=== PATIENT | male | born 1995 | race Caucasian/White ===

== ENCOUNTER 2022-03-27 16:02 | Emergency (ER) | payer MEDICAID, SELFPAY ==
[2022-03-27 16:15] VITALS: BP 140/90; PULSE 94; RESP 19; TEMP 37; O2SAT 98; BMI 31.9
[2022-03-27 16:30] LABS: Adenovirus,PCR Not Detected (NotDetected); Bordetella Pertussis Not Detected (NotDetected); Chlamydophila Pneumoniae, PCR Not Detected (NotDetected); Coronavirus 19, PCR Not Detected (NotDetected); Coronavirus 229E Not Detected (NotDetected); Coronavirus NL63 Not Detected (NotDetected); Coronavirus OC43 Not Detected (NotDetected); Coronovirus HKU1,PCR Not Detected (NotDetected); Human Metapneumovirus Not Detected (NotDetected); Influenza A, PCR Not Detected (NotDetected); Influenza AH1, 2009 Not Detected (NotDetected); Influenza AH1, PCR Not Detected (NotDetected); Influenza AH3,PCR Not Detected (NotDetected); Influenza B, PCR Not Detected (NotDetected); Mycoplasma Pneumoniae, PCR Not Detected (NotDetected); Parainfluenza 1, PCR Not Detected (NotDetected); Parainfluenza 2, PCR Not Detected (NotDetected); Parainfluenza 3, PCR Not Detected (NotDetected); Parainfluenza 4, PCR Not Detected (NotDetected); Respiratory Syncytial Virus Not Detected (NotDetected); Rhinovirus/Enterovirus Not Detected (NotDetected)
--- NOTE | 2022-03-27 16:38 | HMH.EDUTC ---
[facility] – [place], [place] Disposition Clinical Impression: Upper respiratory infection, viral Disposition: Home, Self-Care Condition on Discharge: Good Instructions: DI for Viral Upper Respiratory Infection -- Adult Additional Instructions: covid swab was sent to lab, call tomorrow for results. self isolate until test results are known to be negative No sign of a bacterial infection. Likely viral. Viruses can take 7-14 days to run their course. Nasal saline and bulb syringe or nose Libby to remove nasal drainage to help with nasal congestion. Hard to eat, drink, sleep with nasal congestion so important to keep this cleaned out. Monitor temp. Tylenol or Motrin as needed for pain or fever Encourage fluids, water, Gatorade, Powerade, Pedialyte if /toddler/child Warm salt water gargles Warm fluids Sore throat lozenges Sleep elevated Humidifier/vaporizer Follow-up immediately for new or worsening symptoms or no noticeable improvement over the next 48-72 hours. Referrals: Provider,Referral, MD [Primary Care Provider] - Forms: Work/School Release Time of Disposition: 16:51 Medical Decision Making - Jaguar Inquiry Pt receiving controlled substance: No Vital Signs: 03/27/22 16:15 Temperature 98.6 F Temperature Source Oral Pulse Rate [Right Brachial] 94 H Respiratory Rate 19 Blood Pressure [Right Arm] 140/90 Blood Pressure Mean [Right Arm] 106 Blood Pressure Source [Right Arm] Automatic Cuff Blood Pressure Position [Right Arm] Sitting 02 Sat by Pulse Oximetry 98 Orders (Tests/Meds): ORDERS Category Date Time Status Full Resp Panel w/COVID ([facility]) Routine Lab 03/27/22 16:22 Received [facility] – [place], [place] HPI - General Chief complaint: Urgent Treatment [facility] Stated complaint: weakness, feeling tired Time Seen by Provider: 03/27/22 16:38 Mode of Arrival: Ambulatory Source of Information: Patient Limitations: No Limitations Description of Symptoms (Recalled from Triage Doc. by RN): PATIENT C/O NAUSEA, FATIGUE, AND WEAKNESS SINCE YESTERDAY HEENT Symptoms (Recalled from RN notes): No Resp Symptoms (Recalled from RN notes): Yes Skin Symptoms (Recalled from RN notes): No MS Symptoms (Recalled from RN notes): No Functional Status (Recalled from RN notes): WNL - History of Present Illness Provider Complaint: 26 yr old male presents for nausea,runny nose, weakness in knees, and night sweats last pm - Related Data Home Medications Medication Instructions Recorded Confirmed No Known Home Medications 07/29/20 07/29/20 Allergies Allergy/AdvReac Type Severity Reaction Status Date / Time No Known Allergies Allergy Unverified 07/29/20 16:26 - Worker's Comp Is this a Worker's Comp case?: No [facility] History - Hepatitis A Screen Attestation statement:: This patient has been screened for Hepatitis A risk factors. I have reviewed the patient's past medical history: Yes - Social History Smoking Status: Current every day smoker Tobacco Type: cigarettes # Packs/Day (cigarettes): 1 Alcohol Intake: never Occupational Status: employed Household Members: family ROS Obtained: Yes Systems reviewed as appropriate & no additional complaints - Constitutional Constitutional: Reports system reviewed and no additional complaints, except as docu, Reports fatigue, Denies fever(s), Reports weakness - Eyes Eyes: Reports system reviewed and no additional complaints, except as docu, Denies dry eyes - ENT Ears, Nose, Mouth, and Throat: Reports system reviewed and no additional complaints, except as docu, Reports nasal congestion, Reports nasal discharge - Cardiovascular Cardiovascular: Reports system reviewed and no additional complaints, except as docu, Denies chest pain - Respiratory Respiratory: Reports system reviewed and no additional complaints, except as docu, Denies cough - Gastrointestinal Gastrointestingal: Reports: system reviewed and no additional complaints, except as docu. Denies: abdominal pain - Musculoskel
[2022-03-27 16:48] VITALS: BP 140/90; PULSE 94; RESP 19; TEMP 37; O2SAT 98
== END 2022-03-27 17:05 | disposition home or self-care (01) ==
PROVIDERS: Emergency Provider Nurse Practitioner Family
DX: J06.9 Acute upper respiratory infection, unspecified (principal); R11.0 Nausea; R09.89 Other specified symptoms and signs involving the circulatory and respiratory systems; R53.83 Other fatigue; F17.210 Nicotine dependence, cigarettes, uncomplicated
CPT/HCPCS: 87581; 87632; 87798; 99212; C9803; G0463; U0003; U0005

== ENCOUNTER 2022-05-08 11:59 | Emergency (ER) | payer OTHER, SELFPAY ==
[2022-05-08 12:12] VITALS: BP 148/88; PULSE 87; RESP 18; TEMP 36.4; O2SAT 96; BMI 33.7
--- NOTE | 2022-05-08 12:33 | HMH.EDGENADL ---
ED Disposition Clinical Impression: Groin strain Qualifiers: Encounter type: initial encounter Laterality: left Qualified Code(s): S76.212A - Strain of adductor muscle, fascia and tendon of left thigh, initial encounter Disposition: Home, Self-Care Condition on Discharge: Good Additional Instructions: Ibuprofen as prescribed. Follow-up with your urologist on Tuesday, call for further care and further instructions or work restrictions. No lifting greater than 10 pounds until Tuesday. Return to the emergency department if any worsening pain, or if any swelling of scrotum. Prescriptions: Ibuprofen [Ibuprofen 800mg Tablet] 800 mg PO Q8HP PRN #15 tab PRN Reason: Moderate Pain Transmission Status: Pending to [id number] Referrals: Provider,Referral, [Primary Care Provider] - - Critical Care Critical Care Time: No Attestation: On 05/08/22, the high probability of a clinically significant, sudden or life threatening deterioration of the following system(s) required my full and direct attention, intervention and personal management. The time I documented below is in addition to time spent performing reported procedures but includes the following listed in this critical care notation. Medical Decision Making - Jaguar Inquiry Pt receiving controlled substance: No Vital Signs: 05/08/22 12:12 Temperature 97.5 F L Temperature Source Oral Pulse Rate [Left Radial] 87 Respiratory Rate 18 Blood Pressure [Right Arm] 148/88 H Blood Pressure Mean [Right Arm] 108 02 Sat by Pulse Oximetry 96 Oxygen Delivery Method Room Air Medical Decision Narrative: Exacerbation of his previously improving postoperative pain likely due to strain. Testicular torsion not suspected given current scenario. General Adult HPI - General Chief complaint: PAIN Stated complaint: 3 weeks post op, possible re injury Time Seen by Provider: 05/08/22 12:33 Mode of Arrival: Ambulatory Limitations: No Limitations Description of Symptoms (Recalled from ER Triage Doc. by RN): pt to ed c/o post op pain. pt states he had a vasectomy 3 weeks ago and was released to go back to work. pt states he was lifting heavy objects at work today and is now experiencing pain at the inscision site. - History of Present Illness HPI narrative: States he had a vasectomy 3 weeks ago at [facility]. He has been released to go back to work by his surgeon, his first day back to work was today. He was doing some lifting of heavy objects, up to 30 pounds and developed pain in his testicles at about 10:45 AM. He says it hurts predominantly on the left side, a little on the right. It feels like the pain that he was having about 1-1/2 to 2 weeks after surgery, which had improved since then, but has now returned to that level. It is not as bad as the pain that he had right after surgery. No bruising or swelling or bleeding noted. No difficulty urinating. No medications taken. States he had previously been taking ibuprofen alternating with Tylenol for his pain. - Related Data Previous Rx's Medication Instructions Recorded Ondansetron [Zofran 4mg ODT] 4 mg PO TIDP PRN 4 Days #12 tab 03/27/22 Ibuprofen [Ibuprofen 800mg 800 mg PO Q8HP PRN #15 tab 05/08/22 Tablet] Allergies Allergy/AdvReac Type Severity Reaction Status Date / Time No Known Allergies Allergy Unverified 07/29/20 16:26 [facility] History - Hepatitis A Screen Attestation statement:: This patient has been screened for Hepatitis A risk factors. I have reviewed the patient's past medical history: Yes - Social History Smoking Status: Current every day smoker Tobacco Type: cigarettes # Packs/Day (cigarettes): 1 Alcohol Intake: never Occupational Status: employed Household Members: family ROS Obtained: Yes Systems reviewed as appropriate & no additional complaints - Constitutional Constitutional: Denies fever(s) - Genitourinary Male Genitourinary: Repo
[2022-05-08 12:55] VITALS: BP 130/81; PULSE 93; RESP 17; O2SAT 93
[2022-05-08 14:14] VITALS: BP 128/80; PULSE 89; RESP 17; TEMP 36.5; O2SAT 94
== END 2022-05-08 14:15 | disposition home or self-care (01) ==
PROVIDERS: Emergency Provider Emergency Medicine
DX: S76.212A Strain of adductor muscle, fascia and tendon of left thigh, initial encounter (principal); X50.0XXA Overexertion from strenuous movement or load, initial encounter; Y99.0 Civilian activity done for income or pay; Z98.890 Other specified postprocedural states
CPT/HCPCS: 99283

== ENCOUNTER 2022-08-31 15:22 | Emergency (ER) | payer MEDICAID, SELFPAY ==
[2022-08-31 15:24] VITALS: BP 157/98; PULSE 117; RESP 18; TEMP 38.3; O2SAT 100; BMI 34.4
--- NOTE | 2022-08-31 15:33 | HMH.EDGENADL ---
Discharge Plan Disposition Patient Disposition: Home, Self-Care Condition: Fair Prescriptions Prescriptions: New oseltamivir [Tamiflu] 75 mg capsule 75 mg PO BID 5 Days Qty: 10 0RF No Action ondansetron 4 MG tablet,disintegrating 4 mg PO TIDP PRN (Reason: Nausea) 4 Days Qty: 12 0RF ibuprofen 800 MG tablet 800 mg PO Q8HP PRN (Reason: Moderate Pain) Qty: 15 0RF Referrals Follow up/Referrals: Provider,Referral, MD [Primary Care Provider] - See instructions Activity Restrictions/Add. Instructions Additional Instructions/Restrictions: On reassessment, you have been evaluated for cough, body aches, loss of taste, diagnosed with influenza A and COVID. Please take Tylenol and ibuprofen for aches, pains, fever. Take Tamiflu as prescribed. Zofran for nausea. Follow-up with your primary care doctor in 1 to 2 days for symptom recheck. Return to the emergency department for any new or worsening symptoms. Clinical Impressions Clinical Impression: Influenza A, COVID Instructions Patient Instructions: DI for Influenza -- Adult, DI for COVID-19 (Suspected or Confirmed ) Discharge ED Provider: Silvia Tim Adult HPI General Chief complaint: Fever Stated complaint: cough, diarrhea, runny nose, OLMEDO, fever Time Seen by Provider: 08/31/22 15:27 History of Present Illness HPI narrative: 26-year-old male presenting to the emergency department with body aches, diarrhea, loss of taste, chills, fever, generalized malaise. Symptoms started 2 days ago. Woke up feeling somewhat unwell, symptoms rapidly got worse. He now has a cough that is dry and nonproductive. Nasal congestion. Cannot taste his food. No particular abdominal pain. No nausea or vomiting. He has had loose stools, no blood or mucus. No dysuria. No chest pain or back pain. He was exposed to flu and RSV. He is vaccinated against COVID. Has had the virus twice. No medications prior to arrival. Related Data Previous Rx's Medication Instructions Recorded ondansetron 4 mg disintegrating 4 mg PO TIDP PRN Nausea 4 days #12 03/27/22 tablet tabs ibuprofen 800 mg tablet 800 mg PO Q8HP PRN Moderate Pain 05/08/22 #15 tabs oseltamivir 75 mg capsule (Tamiflu) 75 mg PO BID 5 days #10 caps 08/31/22 Allergies Allergy/AdvReac Type Severity Reaction Status Date / Time No Known Allergies Allergy Unverified 07/29/20 16:26 PFSH PFSH Social History Smoking Status: Never smoker alcohol intake: never current occupational status: employed Travel in the last 8 weeks: None household members: family ROS Obtained: Yes All systems reviewed & no additional complaints except as documented Constitutional Constitutional: Reports body ache, Reports fatigue, Reports headache(s) and Reports malaise Eyes Eyes: Denies blurry vision and Denies dry eyes ENT Ears, Nose, Mouth, and Throat: Reports headache(s), Reports nasal congestion and Denies neck pain Cardiovascular Cardiovascular: Denies chest pain and Denies palpitations Respiratory Respiratory: Reports chest congestion, Reports cough, Denies stridor and Denies wheezing Gastrointestinal Gastrointestingal: Reports diarrhea and nausea; Denies abdominal pain or vomiting Genitourinary Male Genitourinary: Denies flank pain Musculoskeletal Musculoskeletal: Reports myalgias and Denies neck pain Integumentary/Breasts Skin/Breast: Denies redness and Denies rash Neurologic Neurologic: Reports headache(s) Endocrine Endocrine: Reports fatigue and Denies palpitations Allergic/Immunologic Allergic/Immunologic: Denies wheezing Physical Exam General General appearance: alert and in no apparent distress Head Head exam: atraumatic and normocephalic Eye Eye exam: Present normal appearance; Absent scleral icterus or conjunctival redness ENT ENT exam: Present normal exam, mucous membranes moist and other (rhinorrhea) Respiratory Respiratory exam: Present normal lung sounds bilaterally; Absent respi
[2022-08-31 15:47] LABS: Influenza B, PCR Not Detected (NotDetected)
[2022-08-31 16:00] VITALS: BP 141/109; PULSE 108; O2SAT 96
[2022-08-31 16:30] VITALS: BP 161/107; PULSE 108; O2SAT 95
[2022-08-31 16:40] LABS: Coronavirus 19, PCR Detected (NotDetected); Influenza A, PCR Detected (NotDetected)
[2022-08-31 17:23] VITALS: BP 161/107; PULSE 108; RESP 19; TEMP 37.7; O2SAT 95
== END 2022-08-31 16:54 | disposition home or self-care (01) ==
PROVIDERS: Emergency Provider Emergency Medicine
DX: U07.1 COVID-19 (principal); J10.1 Influenza due to other identified influenza virus with other respiratory manifestations; R50.9 Fever, unspecified; R00.0 Tachycardia, unspecified; R19.7 Diarrhea, unspecified; R09.81 Nasal congestion; R09.89 Other specified symptoms and signs involving the circulatory and respiratory systems; R51.9 Headache, unspecified; R05.9 Cough, unspecified; R53.81 Other malaise; M79.10 Myalgia, unspecified site; Z79.1 Long term (current) use of non-steroidal anti-inflammatories (NSAID); Z79.899 Other long term (current) drug therapy
CPT/HCPCS: 99283; C9803; U0003; U0005

== ENCOUNTER 2022-09-13 09:12 | Emergency (ER) | payer MEDICAID, SELFPAY ==
[2022-09-13 09:25] VITALS: BP 142/84; PULSE 100; RESP 18; TEMP 36.4; O2SAT 95; BMI 33.7
--- NOTE | 2022-09-13 10:23 | EXP.UTC ---
Discharge Plan Disposition Patient Disposition: Home, Self-Care Condition: Good Prescriptions Prescriptions: New azithromycin [Zithromax] 250 mg tablet 250 mg PO UD DOSE PK Qty: 6 0RF Rx Instructions: Take two (2) tablets today, then one (1) tablet days #2 thru #5 benzonatate [benzonatate] 100 mg capsule 100 mg PO TIDP PRN (Reason: Cough) Qty: 30 0RF methylprednisolone 4 mg Tablets,Dose Pack 4 mg PO DIRECTED Qty: 21 0RF promethazine-DM 6.25-15 mg/5 mL Syrup 5 ml PO Q6H PRN (Reason: Cough) Qty: 240 0RF No Action ondansetron 4 MG tablet,disintegrating 4 mg PO TIDP PRN (Reason: Nausea) 4 Days Qty: 12 0RF ibuprofen 800 MG tablet 800 mg PO Q8HP PRN (Reason: Moderate Pain) Qty: 15 0RF oseltamivir [Tamiflu] 75 mg capsule 75 mg PO BID 5 Days Qty: 10 0RF Activity Restrictions/Add. Instructions Additional Instructions/Restrictions: Drink plenty of fluids. Take tylenol or ibuprofen for pain or fever. Take the medications as directed. Follow up with your regular doctor. GO TO THE ER FOR ANY WORSENING SYMPTOMS The cough medication (promethazine dm) will make you drowsy, so don't drive or operate heavy machinery after taking it. Clinical Impressions Clinical Impression: Acute bronchitis Stand Alone Forms Stand Alone Forms: Work/School Release Instructions Patient Instructions: Acute Bronchitis, DI for Acute Bronchitis, Promethazine Discharge ED Provider: Francisco Javier Gonsales [facility] General Stated complaint: falls,nausea,vomiting Mode of Arrival: Ambulatory Source of Information: Patient Limitations: No Limitations Time Seen by Provider: 09/13/22 10:23 Description of Symptoms (Recalled from Triage Doc. by RN): pt states he has had nausea, vomiting, and weakness since testing positive for covid a week and a half ago, states he has also fell a few times from losing his balance while coughing very badly, he denies LOC. History of Present Illness Provider Complaint: He states that he has had nausea, vomiting, and weakness since testing positive for covid a week and a half ago. He states that he has began to feel better, but he continues to have a very bad cough with yellowish sputum. He states he has fell a few times from losing his balance while coughing very badly, he denies LOC. Related Data Previous Rx's Medication Instructions Recorded ondansetron 4 mg disintegrating 4 mg PO TIDP PRN Nausea 4 days #12 03/27/22 tablet tabs ibuprofen 800 mg tablet 800 mg PO Q8HP PRN Moderate Pain 05/08/22 #15 tabs oseltamivir 75 mg capsule (Tamiflu) 75 mg PO BID 5 days #10 caps 08/31/22 azithromycin 250 mg tablet 250 mg PO UD DOSE PK #6 tabs 09/13/22 (Zithromax) benzonatate 100 mg capsule 100 mg PO TIDP PRN Cough #30 caps 09/13/22 methylprednisolone 4 mg tablets in 4 mg PO DIRECTED #21 tabs 09/13/22 a dose pack promethazine-DM 6.25 mg-15 mg/5 mL 5 ml PO Q6H PRN Cough #240 mL 09/13/22 oral syrup Allergies Allergy/AdvReac Type Severity Reaction Status Date / Time No Known Allergies Allergy Verified 09/13/22 10:36 [facility] Disclaimer: The information contained in this section may have been updated after the patient was seen, as this information can be updated by other users. Social History Smoking Status: Never smoker alcohol intake: never current occupational status: employed Travel in the last 8 weeks: None household members: family ROS Obtained: Yes All systems reviewed & no additional complaints except as documented Constitutional Constitutional: Reports chills and Reports fever(s) Eyes Eyes: Denies eye discharge ENT Ears, Nose, Mouth, and Throat: Reports as per HPI Cardiovascular Cardiovascular: Denies chest pain Respiratory Respiratory: Denies chest congestion and Reports cough Gastrointestinal Gastrointestingal: Reports nausea; Denies abdominal pain, constipation, cramping, d
[2022-09-13 10:27] VITALS: BP 142/84; PULSE 100; RESP 16; TEMP 36.4; O2SAT 96; BMI 33.6
[2022-09-13 10:36] LABS: UTC Strep Screen (Rapid) Negative (Negative)
[2022-09-13 11:11] VITALS: BP 142/84; PULSE 100; RESP 16; TEMP 36.4
[2022-09-13 11:17] LABS: Adenovirus,PCR Not Detected (NotDetected); Bordetella Pertussis Not Detected (NotDetected); Chlamydophila Pneumoniae, PCR Not Detected (NotDetected); Coronavirus 19, PCR Not Detected (NotDetected); Coronavirus 229E Not Detected (NotDetected); Coronavirus NL63 Not Detected (NotDetected); Coronavirus OC43 Not Detected (NotDetected); Coronovirus HKU1,PCR Not Detected (NotDetected); Human Metapneumovirus Not Detected (NotDetected); Influenza A, PCR Not Detected (NotDetected); Influenza AH1, 2009 Not Detected (NotDetected); Influenza AH1, PCR Not Detected (NotDetected); Influenza AH3,PCR Not Detected (NotDetected); Influenza B, PCR Not Detected (NotDetected); Mycoplasma Pneumoniae, PCR Not Detected (NotDetected); Parainfluenza 1, PCR Not Detected (NotDetected); Parainfluenza 2, PCR Not Detected (NotDetected); Parainfluenza 3, PCR Not Detected (NotDetected); Parainfluenza 4, PCR Not Detected (NotDetected); Respiratory Syncytial Virus Not Detected (NotDetected); Rhinovirus/Enterovirus Not Detected (NotDetected)
== END 2022-09-13 11:12 | disposition home or self-care (01) ==
PROVIDERS: Emergency Provider Nurse Practitioner Family
DX: J20.9 Acute bronchitis, unspecified (principal)
CPT/HCPCS: 87581; 87632; 87798; 87880; 99212; C9803; G0463; U0003; U0005

== ENCOUNTER 2022-10-31 07:18 | Emergency (ER) | payer MEDICAID, SELFPAY ==
[2022-10-31 07:27] VITALS: BP 165/100; PULSE 115; RESP 17; TEMP 36.7; O2SAT 94; BMI 32.1
[2022-10-31 07:46] LABS: Coronavirus 19, PCR Not Detected (NotDetected); Influenza A, PCR Not Detected (NotDetected); Influenza B, PCR Not Detected (NotDetected)
[2022-10-31 07:49] LABS: Basophils # 0.1 K/mm3 (0-0.2); Basophils % 1.3 % (0.1-2.0); Eosinophils # 0.1 K/mm3 (0.0-0.4); Eosinophils % 1.5 % (0.1-12.0); Hematocrit 45.3 % (42.0-52.0); Hemoglobin 15.5 g/dL (14.1-18.0); Lymphocytes # 1.7 K/mm3 (0.7-4.5); Lymphocytes % 24.7 % (10-50); Mean Corpuscular HGB Conc 34.2 g/dL (31.8-35.4); Mean Corpuscular Volume 87.7 fl (80-94); Mean Platelet Volume 7.3 fl (7.4-10.4); Monocytes # 0.5 K/mm3 (0.1-1.0); Monocytes % 6.5 % (1.7-9.3); Neutrophils # 4.5 K/mm3 (1.8-7.8); Neutrophils % 65.9 % (37.0-80.0); Platelet Count 309 K/mm3 (142-424); Red Blood Count 5.17 M/mm3 (4.60-6.20); White Blood Count 6.9 K/mm3 (4.8-10.8)
[2022-10-31 07:55] LABS: Alanine Aminotransferase 45 U/L (12-78); Albumin Level 4.6 g/dl (3.5-5.0); Albumin/Globulin Ratio 1.4 (1.1-1.8); Alkaline Phosphatase 101 U/L (38-126); Anion Gap 12.7 mEq/L (5-15); Aspartate Amino Transferase 39 U/L (17-59); Bilirubin,Total 0.5 mg/dl (0.2-1.3); Blood Urea Nitrogen 9 mg/dl (9-20); Calcium 8.8 mg/dl (8.4-10.2); Carbon Dioxide 28 mmol/L (22.0-30.0); Chloride 105 mmol/L (98-107); Creatinine Clearance Estimated 180 mL/min (50-200); Estimated Glomerular Filt Rate 100 ml/min (>60); GFR (African American) 122 ML/MIN (>60); Globulin 3.3 g/dL (1.3-3.2); Glucose 106 mg/dl (74-100); Lipase 40 U/L (23-300); Potassium 3.7 mmoL/L (3.5-5.1); Sodium 142 mmol/L (136-145); Total Protein,Serum 7.9 g/dl (6.3-8.2)
--- NOTE | 2022-10-31 08:02 | HMH.EDNVD ---
Discharge Plan Disposition Patient Disposition: Home, Self-Care Condition: Good Prescriptions Prescriptions: New ondansetron 8 mg Tablet,Disintegrating 8 mg PO QID PRN (Reason: Nausea And Vomiting) Qty: 16 0RF No Action ondansetron 4 MG tablet,disintegrating 4 mg PO TIDP PRN (Reason: Nausea) 4 Days Qty: 12 0RF ibuprofen 800 MG tablet 800 mg PO Q8HP PRN (Reason: Moderate Pain) Qty: 15 0RF oseltamivir [Tamiflu] 75 mg capsule 75 mg PO BID 5 Days Qty: 10 0RF azithromycin [Zithromax] 250 mg tablet 250 mg PO UD DOSE PK Qty: 6 0RF Rx Instructions: Take two (2) tablets today, then one (1) tablet days #2 thru #5 benzonatate [benzonatate] 100 mg capsule 100 mg PO TIDP PRN (Reason: Cough) Qty: 30 0RF methylprednisolone 4 mg Tablets,Dose Pack 4 mg PO DIRECTED Qty: 21 0RF promethazine-DM 6.25-15 mg/5 mL Syrup 5 ml PO Q6H PRN (Reason: Cough) Qty: 240 0RF Referrals Follow up/Referrals: Provider,Referral, MD [Primary Care Provider] - See instructions Clinical Impressions Clinical Impression: Gastroenteritis Stand Alone Forms Stand Alone Forms: Work/School Release Instructions Patient Instructions: DI for Acute Abdominal Pain Discharge ED Provider: Johann Godoy Nausea/Vomiting/Diarrhea HPI General Chief complaint: Abdominal Pain Stated complaint: severe stomach pain,cramping Time Seen by Provider: 10/31/22 08:07 Mode of Arrival: Ambulatory Source of Information: Patient Limitations: No Limitations Description of Symptoms (Recalled from ER Triage Doc. by RN): Pt c/o N/V/D/Epigastric Abd pain, plus upper congestion; NAD History of Present Illness HPI Narrative: The patient presents to the emergency department complaining of a few days of nausea vomiting and diarrhea associated with abdominal cramping. He denies any bloody emesis or hematochezia. He states he had a similar episode approximately 3 weeks ago. He does not have a known history of gastrointestinal chronic disease such as ulcerative colitis or Crohn's disease. He denies any other symptoms. MD complaint: nausea, vomiting and diarrhea Related Data Previous Rx's Medication Instructions Recorded ondansetron 4 mg disintegrating 4 mg PO TIDP PRN Nausea 4 days #12 03/27/22 tablet tabs ibuprofen 800 mg tablet 800 mg PO Q8HP PRN Moderate Pain 05/08/22 #15 tabs oseltamivir 75 mg capsule (Tamiflu) 75 mg PO BID 5 days #10 caps 08/31/22 azithromycin 250 mg tablet 250 mg PO UD DOSE PK #6 tabs 09/13/22 (Zithromax) benzonatate 100 mg capsule 100 mg PO TIDP PRN Cough #30 caps 09/13/22 methylprednisolone 4 mg tablets in 4 mg PO DIRECTED #21 tabs 09/13/22 a dose pack promethazine-DM 6.25 mg-15 mg/5 mL 5 ml PO Q6H PRN Cough #240 mL 09/13/22 oral syrup ondansetron 8 mg disintegrating 8 mg PO QID PRN Nausea And 10/31/22 tablet Vomiting #16 tabs Allergies Allergy/AdvReac Type Severity Reaction Status Date / Time No Known Allergies Allergy Verified 09/13/22 10:36 [facility] Disclaimer: The information contained in this section may have been updated after the patient was seen, as this information can be updated by other users. Social History Smoking Status: Never smoker alcohol intake: never current occupational status: employed Travel in the last 8 weeks: None household members: family ROS Obtained: Yes All systems reviewed & no additional complaints except as documented Physical Exam General General appearance: alert Head Head exam: atraumatic Eye Eye exam: Present normal appearance ENT ENT exam: Present normal exam Neck Neck exam: Present normal inspection and full ROM; Absent tenderness or meningismus Chest Chest inspection: Present normal inspection and symmetric chest wall rise; Absent tenderness Respiratory Respiratory exam: Present normal lung sounds bilaterally; Absent respiratory distress or accessory muscle use Card
[2022-10-31 08:30] VITALS: BP 139/95; PULSE 100; RESP 17; TEMP 36.7; O2SAT 99
== END 2022-10-31 08:30 | disposition home or self-care (01) ==
PROVIDERS: Emergency Medicine; Emergency Provider Emergency Medicine
DX: K52.9 Noninfective gastroenteritis and colitis, unspecified (principal); Z20.822 Contact with and (suspected) exposure to COVID-19
CPT/HCPCS: 80053; 83690; 85025; 96361; 96374; 99285; C9803; J2405; U0003; U0005

== ENCOUNTER 2022-11-07 08:17 | Emergency (ER) | payer OTHER, MEDICAID, SELFPAY ==
[2022-11-07 08:25] VITALS: BP 148/92; PULSE 84; RESP 20; TEMP 36.8; O2SAT 100; BMI 33.5
--- NOTE | 2022-11-07 08:36 | EXP.UTC ---
Discharge Plan Disposition Patient Disposition: Home, Self-Care Condition: Good Prescriptions Prescriptions: New methocarbamol 500 mg tablet 500 mg PO TID PRN (Reason: muscle spasm) Qty: 12 0RF Referrals Follow up/Referrals: Provider,Referral, MD [Primary Care Provider] - See instructions Activity Restrictions/Add. Instructions Additional Instructions/Restrictions: *Ibuprofen anya 6 hours with meal as needed for pain/inflammation *Remember you had a Toradol shot in the clinic today, which is similar to Motrin and Ibuprofen do not take for the next 8hrs *Not additional anti-inflammatory like motrin, aleve, advil with the above amount of ibuprofen. You can still take Tylenol every 4 hours as needed if you need something else for pain *Ice 20 minutes every 2 hours for the first 48 hours after the initial injury followed by moist heat every 20 minutes 3-4 times a day to affected area *Muscle relaxer every 8 hours as needed for muscle spasms but remember, it WILL cause drowsiness You cannot take it and drive, operate machinery or care for small children. *Keep this area active, no movement leads to more stiffness, However take it easy and avoid heavy lifting pushing or pulling *Follow up with you family doctor if no improvement for further treatment Clinical Impressions Clinical Impression: Muscle spasm Stand Alone Forms Stand Alone Forms: Work/School Release Instructions Patient Instructions: DI for Low Back Pain, DI for Muscle Spasm Discharge ED Provider: Karina Mahan [facility] General Stated complaint: Back pain AO 11/07 0715 Mode of Arrival: Ambulatory Source of Information: Patient Limitations: No Limitations Time Seen by Provider: 11/07/22 08:36 Description of Symptoms (Recalled from Triage Doc. by RN): lower back pain from lifting at work this morning. 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 and felt something pull in his lower back States that he has been having muscle spasms in his lower back ever since States that hurts when he moves or turns certain ways Denies radiation of pain denies loss of control of bowel or bladder Related Data Previous Rx's Medication Instructions Recorded methocarbamol 500 mg tablet 500 mg PO TID PRN muscle spasm #12 11/07/22 tabs Allergies Allergy/AdvReac Type Severity Reaction Status Date / Time No Known Allergies Allergy Verified 11/07/22 08:30 Worker's Comp Is this a Worker's Comp case?: No [facility] Disclaimer: The information contained in this section may have been updated after the patient was seen, as this information can be updated by other users. Medical History (Updated 11/07/22 @ 08:50 by Karina Mahan APRN) No significant past medical history Family History (Updated 11/07/22 @ 08:30 by Liz Khan RN) Other No significant family history Social History Smoking Status: Never smoker alcohol intake: never current occupational status: employed Travel in the last 8 weeks: None household members: family ROS Obtained: Yes All systems reviewed & no additional complaints except as documented and Yes Systems reviewed as appropriate & no additional complaints except as documented Constitutional Constitutional: Reports system reviewed and no additional complaints, except as documented and Reports as per HPI ENT Ears, Nose, Mouth, and Throat: Reports system reviewed and no additional complaints, except as documented and Reports as per HPI Cardiovascular Cardiovascular: Reports system reviewed and no additional complaints, except as documented and Reports as per HPI Respiratory Respiratory: Reports syste
[2022-11-07 09:34] VITALS: BP 148/92; PULSE 84; RESP 20; TEMP 36.8; O2SAT 100
== END 2022-11-07 09:33 | disposition home or self-care (01) ==
PROVIDERS: Emergency Provider Nurse Practitioner
DX: M62.838 Other muscle spasm (principal); Y93.89 Activity, other specified; Y99.0 Civilian activity done for income or pay
CPT/HCPCS: 99212; 99213; G0463

== ENCOUNTER 2022-11-26 18:35 | Emergency (ER) | payer MEDICAID, OTHER, SELFPAY ==
[2022-11-26 18:38] VITALS: BP 135/81; PULSE 76; RESP 16; TEMP 36.7; O2SAT 97; BMI 36.1
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
[2022-11-26 20:16] VITALS: BP 127/73; PULSE 105; RESP 17; TEMP 36.8; O2SAT 97
== END 2022-11-26 20:17 | disposition home or self-care (01) ==
PROVIDERS: Emergency Provider Nurse Practitioner Family
DX: S39.012A Strain of muscle, fascia and tendon of lower back, initial encounter (principal); S80.01XA Contusion of right knee, initial encounter; V49.40XA Driver injured in collision with unspecified motor vehicles in traffic accident, initial encounter
CPT/HCPCS: 99283

== ENCOUNTER 2023-01-11 08:30 | Outpatient (RCR) | payer MEDICAID, SELFPAY | END 2023-01-11 08:35 | disposition home or self-care (01) | LOC: PT 08:30 | DX: M54.50 Low back pain, unspecified (principal) | CPT/HCPCS: 97010; 97014; 97110; 97140; 97163; 97164; 97530; G0283 ==